=== PATIENT | male | born 1945 | race Caucasian/White ===

== ENCOUNTER → 2018-02-22 06:41 | Outpatient (CLI) | payer MEDICARE, OTHER, SELFPAY ==
--- NOTE | 2018-02-22 06:46 | CT_ITS ---
STUDY: CT BRAIN WITH AND WITHOUT CONTRAST REASON FOR EXAM: Male, 72 years old. Previous TIAs. Right leg pain. RADIATION DOSAGE (If Supplied By Facility): CTDIvol = ( 44.99 ) mGy, DLP = ( 1614.72 ) mGycm TECHNIQUE: Transaxial CT imaging of the brain was performed pre and post contrast administration. The examination was performed with intravenous administration of 50 ml of Isovue 370 contrast material. Individualized dose optimization techniques were used for this CT. COMPARISON: Comparison is made with prior study dated November 18, 2016. FINDINGS: Normal soft tissue structures. Normal calvarium. Normal size ventricles and extra-axial spaces for the patient's age. Normal white matter tracts of the cerebral hemispheres. Normal basal ganglia and thalami. Normal brainstem. Normal cerebellum. There is no intracranial hemorrhage. There are no findings of an acute ischemic infarction. Normal visualized paranasal sinuses. CT/Brain/Head W/WO Contrast IMPRESSION: Normal unenhanced and enhanced CT scan of the brain. Electronically Signed: Hasmukh Camarena MD at 10:56 EDT Tel [phone], Service support ,
== END ==
DX: Z86.73 Personal history of transient ischemic attack (TIA), and cerebral infarction without residual deficits (principal)
CPT/HCPCS: 70470; Q9967

== ENCOUNTER 2018-03-11 10:32 | Emergency (ER) | payer MEDICARE, OTHER, SELFPAY ==
[2018-03-11] VITALS (7 sets, daily range): BP systolic 151–177; BP diastolic 78–91; PULSE 56–65; RESP 16–35; TEMP 36.6; O2SAT 92–100; BMI 31.8
--- NOTE | 2018-03-11 10:45 | EKG12_ITS ---
Test Reason : FALL/CONFUSION Blood Pressure : / mmHG Vent. Rate : 065 BPM Atrial Rate : 065 BPM P-R Int : 238 ms QRS Dur : 094 ms QT Int : 440 ms P-R-T Axes : 026 -01 006 degrees QTc Int : 457 ms Suspect unspecified pacemaker failure Atrial-paced rhythm with prolonged AV conduction Left ventricular hypertrophy with repolarization abnormality Abnormal ECG Confirmed by JOCELYNN ANGULO ([id number]), digital editor HEVER RUBIO ([id number]) on 03/25/2018 5:23:17 PM Referred By: JARED Confirmed By:JOCELYNN ANGULO
--- NOTE | 2018-03-11 10:46 | CT_ITS ---
STUDY: CT BRAIN WITHOUT CONTRAST REASON FOR EXAM: Male, 72 years old. Trauma, bleeding from the left ear and nose RADIATION DOSAGE (If Supplied By Facility): CTDIvol = ( 44.99 ) mGy, DLP = ( 880.47 ) mGycm TECHNIQUE: Transaxial CT imaging of the brain was performed without administration of intravenous contrast material. Sagittal and coronal reconstructed images are provided and reviewed. Individualized dose optimization techniques were used for this CT. COMPARISON: 02/22/2018 FINDINGS: Normal soft tissue structures. Normal calvarium. There is intraparenchymal hemorrhage within the right temporal lobe. This measures approximately 1.8 x 1.2 cm. There is acute subdural hemorrhage on the right, measuring up to 1 cm in thickness. There is shift of the midline structures towards the left, by approximately 8 mm. There is mucoperiosteal inflammatory disease of the paranasal sinuses consistent with mild chronic sinusitis. CT/Brain/Head without Contrast IMPRESSION: Acute intraparenchymal and subdural hemorrhage on the right. There is approximately 8 mm of midline shift towards the left. N.B. : The above information has been verbally conveyed by Leonid Gee DO to Connected to Dr. Gee, Covering Physician, on 03/11/2018 12:05:56 (ET). Electronically Signed: Leonid Gee DO at 11:29 EDT Tel , Service support , N.B. : The above information has been verbally conveyed by Leonid Gee DO to Connected to Dr. Gee, Covering Physician, on 03/11/2018 12:05:56 (ET).
--- NOTE | 2018-03-11 10:46 | RAD_ITS ---
STUDY: X-RAY CHEST REASON FOR EXAM: Male, 72 years old. Trauma, status post fall TECHNIQUE: Single AP portable view of the chest. COMPARISON: None. FINDINGS: Cardiac monitoring leads overlie the chest. Cardiac pacemaker overlies the chest. There is patchy opacity in the left perihilar region and left lower lobe. There is an apical pleural cap on the left. There is mild cardiac enlargement. Normal mediastinum and carlos a. Normal visualized pulmonary arteries. There is atherosclerotic calcification of the aortic arch with tortuosity. There are diffuse degenerative changes of the visualized thoracic spine. Fractures are seen within multiple left-sided ribs, likely the fourth through the 10th. There is no demonstrated abnormality of the visualized soft tissue structures of the upper abdomen. RAD/Chest 1 View (Portable) IMPRESSION: Multiple left-sided rib fractures. Patchy left lung opacification may represent pulmonary contusion. A hemothorax cannot be excluded with soft tissue overlying the left lung apex. Electronically Signed: Leonid Gee DO at 11:41 EDT Tel , Service support ,
--- NOTE | 2018-03-11 10:46 | RAD_ITS ---
STUDY: X-RAY - PELVIS REASON FOR EXAM: Male, 72 years old. Trauma, status post fall TECHNIQUE: One view of the pelvis was obtained. COMPARISON: None. FINDINGS: There is a non-specific bowel gas pattern. Normal visualized soft tissue structures. Normal bilateral iliac wings, sacroiliac joints and visualized sacrum. Normal visualized bilateral superior and inferior pubic rami. Normal pubic symphysis. Normal ischial tuberosities. Normal visualized right femoral head. Normal right acetabulum. Normal right hip joint. Normal visualized left femoral head. Normal left acetabulum. Normal left hip joint. RAD/Pelvis 1 or 2 Views IMPRESSION: Normal x-ray examination of the pelvis. Electronically Signed: Leonid Gee DO at 11:35 EDT Tel , Service support ,
--- NOTE | 2018-03-11 10:46 | CT_ITS ---
STUDY: CT CERVICAL SPINE WITHOUT CONTRAST REASON FOR EXAM: Male, 72 years old. Trauma, status post fall in the shower RADIATION DOSAGE (If Supplied By Facility): CTDIvol = ( 28.73 ) mGy, DLP = ( 724 ) mGycm TECHNIQUE: High resolution transaxial imaging was performed without contrast material. Sagittal and coronal images were reconstructed. Individualized dose optimization techniques were used for this CT. COMPARISON: CT brain, same date FINDINGS: Normal craniovertebral junction. There are degenerative changes of the anterior atlantoaxial articulation. Normal odontoid process. Normal cervical lordosis. Normal vertebral bodies and posterior osseous elements. There are mild degenerative changes throughout the cervical spine, with disc space narrowing and an intradiscal calcification. There is some motion artifact present, slightly limiting evaluation. There is no fracture. Vascular calcifications are seen. CT/Spine Cervical without Contras IMPRESSION: Degenerative changes. No acute bony abnormality. Electronically Signed: Leonid Gee DO at 11:34 EDT Tel , Service support ,
[2018-03-11 10:53] LABS: Absolute Lymphocyte Count 1.94 X10^3/ul (0.83-4.51); Absolute Neutrophil Count 3.9 X10^3/uL (2.0-7.7); Basophil# 0.02 X10^3/uL; Basophil% 0.3 % (0-1); Eosinophil# 0.08 X10^3/uL; Eosinophils% 1.2 % (0-5); Hematocrit 40.9 % (40-54); Hemoglobin 13.6 g/dl (13.0-16.5); Lymphocyte # 1.94 X10^3/ul (4.0); Lymphocyte % 29.6 % (19-41); Mean Corp Hgb Conc 33.3 g/gl (32-36); Mean Corpuscular Hgb 30.7 pg (27.0-32.0); Mean Corpuscular Volume 92.3 fL (80-94); Monocyte% 9.2 % (0-10); Neutrophil # 3.89 X10^3/uL (2.7-7.7); Neutrophil % 59.4 % (47-70); Platelet Count 214 K/mm3 (150-450); RBC Distribution Width CV 13.3 % (11.6-14.6); RBC Distribution Width SD 44.9 fl (35.1-43.9); Red Blood Count 4.43 M/mm3 (4.6-6.2); White Blood Count 6.6 K/mm3 (4.4-11.0)
[2018-03-11 10:54] LABS: POSITIVE COUNT NO; POSITIVE DIFFERENTIAL NO; POSITIVE MORPHOLOGY NO
[2018-03-11 10:59] LABS: International Normalized Ratio 2.6; Prothrombin Time (Protime)PT. 28.2 SECONDS (11.7-14.9)
[2018-03-11 11:04] LABS: Partial Thromboplast Time 35.5 Seconds (24.1-36.2)
[2018-03-11 11:10] LABS: Alcohol, Blood (Medical)-Serum < 3.0 mg/dL
--- NOTE | 2018-03-11 11:10 | ED.RN ---
return from ct. breathing increased and heavy. dr mora at bedside
[2018-03-11 11:15] LABS: AST(SGOT) 39 U/L (15-37); Alanine Aminotransfer ALT/SGPT 33 U/L (16-61); Albumin, Serum 3.6 g/dL (3.2-5.0); Alkaline Phosphatase 57 U/L (45-117); Anion Gap 8 (5-15); BUN 17 mg/dL (7-18); BUN/Creat Ratio 19.5 RATIO (10-20); Bilirubin, Direct 0.19 mg/dL (0.00-0.30); Calcium,Total 8.9 mg/dL (8.5-10.1); Chloride 106 mmol/L (98-107); Creatinine, Serum 0.87 mg/dL (0.70-1.30); EST Glomerular Filtration Rate 92 mL/min (>60); Est Glom Filt Rate - Afr Amer 111 mL/min (>60); Estimated Creatinine Clearance 91.86 ml/min; Globulin 3.7 g/dL (2.2-4.2); Glucose 142 mg/dL (74-106); Potassium 3.6 mmol/L (3.5-5.1); Protein, Total 7.3 g/dL (6.4-8.2); Sodium Level 139 mmol/L (136-145)
--- NOTE | 2018-03-11 11:15 | ED.RN ---
decision to intubate. process for transfer. cps called and prep for intubation.
--- NOTE | 2018-03-11 11:23 | NURSING ---
CALLED [facility] FOR TRANSFER. ER DOC TO ER DOC
--- NOTE | 2018-03-11 11:26 | NURSING ---
ER DOC DR FULLER
[2018-03-11] MEDS: Succinylcholine Chloride 200 MG/10 ML Vial 100 MG IV (11:29)
--- NOTE | 2018-03-11 11:42 | RAD_ITS ---
STUDY: X-RAY CHEST REASON FOR EXAM: Male, 72 years old. Line placement TECHNIQUE: Single AP portable view of the chest. COMPARISON: 03/11/2018 FINDINGS: An endotracheal tube is seen with the tip approximately 3.7 cm above the sofiya. An enteric tube is within the stomach. Cardiac pacemaker is unchanged. There is patchy left-sided airspace disease. Left apical pleural cap is seen. The right lung apex is excluded from the image. Normal size heart. Normal mediastinum and carlos a. Normal visualized pulmonary arteries. There is atherosclerotic calcification of the aortic arch with tortuosity. Normal visualized thoracic spine. Multiple left-sided rib fractures are seen. There is no demonstrated abnormality of the visualized soft tissue structures of the upper abdomen. RAD/Chest 1 View (Portable) IMPRESSION: Life support tubes and catheters, as detailed above. Continued left-sided airspace disease likely representing pulmonary contusion. Multiple left-sided rib fractures. Electronically Signed: Leonid Gee DO at 12:49 EDT Tel , Service support ,
--- NOTE | 2018-03-11 11:46 | NURSING ---
[facility] ETA IS 8 MIN
--- NOTE | 2018-03-11 11:49 | ED.VISSUMM ---
- ER Visit Summary Date of Service: 03/11/18 Chief Complaint: Fall History of Present Illness: The patient is a 72 M on Coumadin who presents for injuries after a fall. Per the patient fell in the shower. It was unwitnessed. EMS was called, and noted the patient to be confused and asking repetitive questions. states the floor in the bathroom is concrete and the patient had fallen out of the shower and hit his head on the floor. He has a pacemaker. End of history limited secondary to patient mental status. Physical Examination: Patient is in spinal immobilization, moaning and not answering questions. Airway is patent. Lungs are clear and symmetric. Pulses 2+ and symmetrical distal extremities. Pupils are constricted, equal. GCS = 8. No obvious scalp trauma. Blood from the left ear, negative halo sign. Dried blood in bilateral nares, no septal hematoma noted. No malocclusion or oropharyngeal trauma noted. Mucous membranes are dry. Trachea is midline. Patient in a c-collar. Heart regular rate and rhythm, clicking noted over the left sternal border, systolic murmur noted. Abdomen is soft, nontender, nondistended. Pelvis is stable. No deformities noted to the extremities. Bruising in various stages of healing noted on the extremities. Test Results: Abnormal Lab Results 03/11/18 03/11/18 03/11/18 10:35 10:35 10:35 WBC 6.6 RBC 4.43 L Hgb 13.6 Hct 40.9 MCV 92.3 MCH 30.7 MCHC 33.3 RDW 13.3 RDW Differential 44.9 H Plt Count 214 MPV 9.0 Immature Gran % (Auto) 0.300 Neut % (Auto) 59.4 Lymph % (Auto) 29.6 Shoshone % (Auto) 9.2 Eos % (Auto) 1.2 Baso % (Auto) 0.3 Absolute Neuts (auto) 3.9 Absolute Lymphs (auto) 1.94 Total Counted Not Reportable PT 28.2 H INR 2.6 APTT 35.5 Sodium 139 Potassium 3.6 Chloride 106 Carbon Dioxide 25.0 Anion Gap 8 BUN 17 Creatinine 0.87 Estim Creat Clear Calc 91.86 Est GFR (MDRD) Af Amer 111 Est GFR (MDRD) Non-Af 92 BUN/Creatinine Ratio 19.5 Glucose 142 H Calcium 8.9 Total Bilirubin 0.70 Direct Bilirubin 0.19 AST 39 H ALT 33 Alkaline Phosphatase 57 Total Protein 7.3 Albumin 3.6 Globulin 3.7 Ethyl Alcohol 03/11/18 10:35 WBC RBC Hgb Hct MCV MCH MCHC RDW RDW Differential Plt Count MPV Immature Gran % (Auto) Neut % (Auto) Lymph % (Auto) Shoshone % (Auto) Eos % (Auto) Baso % (Auto) Absolute Neuts (auto) Absolute Lymphs (auto) Total Counted PT INR APTT Sodium Potassium Chloride Carbon Dioxide Anion Gap BUN Creatinine Estim Creat Clear Calc Est GFR (MDRD) Af Amer Est GFR (MDRD) Non-Af BUN/Creatinine Ratio Glucose Calcium Total Bilirubin Direct Bilirubin AST ALT Alkaline Phosphatase Total Protein Albumin Globulin Ethyl Alcohol < 3.0 Clinical Impression(s) from Imaging Studies Cervical Spine CT 03/11/18 10:46 IMPRESSION: Degenerative changes. No acute bony abnormality. Electronically Signed: Leonid Gee DO at 11:34 EDT Tel , Service support , Chest X-Ray 03/11/18 10:46 IMPRESSION: Multiple left-sided rib fractures. Patchy left lung opacification may represent pulmonary contusion. A hemothorax cannot be excluded with soft tissue overlying the left lung apex. Electronically Signed: Leonid Gee DO at 11:41 EDT Tel , Service support , Pelvis X-Ray 03/11/18 10:46 IMPRESSION: Normal x-ray examination of the pelvis. Electronically Signed: Leonid Gee DO at 11:35 EDT Tel , Service support , Emergency Department Course and Treatment: Patient presents with decreasing mental status after a fall with obvious head trauma. CT of the head showed a right-sided subdural hemorrhage with midline shift. Patient had further decline in his mental status, with beginning of flexor posturing on the right. Patient was intubated for airway protection after induction with etomidate and succinylcholine. Placement confirmed with capnography, equal chest rise and symmetric breath sounds, CXR. Vitamin K and K Centra were given for reversal of an INR of 2.6. Chest x-ray shows multiple left-sided rib fractures with no obvious hemo/pneumothorax. Maintain symmetric breath sounds bilaterally. No spinal fractures noted on CT the spine. Patient was discussed with Dr. Yuan at [facility] for trauma eval and neurosurgical intervention. No seizure prophylaxis given after discussion with the receiving facility. Patient remained sedated on propofol drip with close monitoring of hemodynamics. Transferred emergently via [facility]. Family kept updated. CODE STATUS confirmed as full code with . Critical care time: 45 minutes independent of separately billable procedures. Treatment Plan: [] Disposition: Transfer to [facility] ED for trauma and neurosurgical services Impression: Traumatic subdural hematoma, altered mental status, left rib fractures, pulmonary contusion, respiratory failure. intubated patient. This note was generated with [employer] dictation software. It may contain incorrect words, spelling, and punctuation that were not noted in review of the chart prior to signing ED Disposition - Plan for ED Patient: Disposition: [facility] Chief Complaint: Fall [facility] [Primary Care Provider] -
[2018-03-11] MEDS: Propofol 10MG/Ml 1,000 MG/100 ML Bottle 3.375 MG CONT INF (11:50)
--- NOTE | 2018-03-11 11:57 | ED.DCSUM_ITS ---
- ER Visit Summary Date of Service: 03/11/18 Chief Complaint: Fall History of Present Illness: The patient is a 72 M on Coumadin who presents for injuries after a fall. Per the patient fell in the shower. It was unwitnessed. EMS was called, and noted the patient to be confused and asking repetitive questions. states the floor in the bathroom is concrete and the patient had fallen out of the shower and hit his head on the floor. He has a pacemaker. End of history limited secondary to patient mental status. Physical Examination: Patient is in spinal immobilization, moaning and not answering questions. Airway is patent. Lungs are clear and symmetric. Pulses 2+ and symmetrical distal extremities. Pupils are constricted, equal. GCS = 8. No obvious scalp trauma. Blood from the left ear, negative halo sign. Dried blood in bilateral nares, no septal hematoma noted. No malocclusion or oropharyngeal trauma noted. Mucous membranes are dry. Trachea is midline. Patient in a c-collar. Heart regular rate and rhythm, clicking noted over the left sternal border, systolic murmur noted. Abdomen is soft, nontender, nondistended. Pelvis is stable. No deformities noted to the extremities. Bruising in various stages of healing noted on the extremities. Test Results: Abnormal Lab Results 03/11/18 03/11/18 03/11/18 10:35 10:35 10:35 WBC 6.6 RBC 4.43 L Hgb 13.6 Hct 40.9 MCV 92.3 MCH 30.7 MCHC 33.3 RDW 13.3 RDW Differential 44.9 H Plt Count 214 MPV 9.0 Immature Gran % (Auto) 0.300 Neut % (Auto) 59.4 Lymph % (Auto) 29.6 Clinch % (Auto) 9.2 Eos % (Auto) 1.2 Baso % (Auto) 0.3 Absolute Neuts (auto) 3.9 Absolute Lymphs (auto) 1.94 Total Counted Not Reportable PT 28.2 H INR 2.6 APTT 35.5 Sodium 139 Potassium 3.6 Chloride 106 Carbon Dioxide 25.0 Anion Gap 8 BUN 17 Creatinine 0.87 Estim Creat Clear Calc 91.86 Est GFR (MDRD) Af Amer 111 Est GFR (MDRD) Non-Af 92 BUN/Creatinine Ratio 19.5 Glucose 142 H Calcium 8.9 Total Bilirubin 0.70 Direct Bilirubin 0.19 AST 39 H ALT 33 Alkaline Phosphatase 57 Total Protein 7.3 Albumin 3.6 Globulin 3.7 Ethyl Alcohol 03/11/18 10:35 WBC RBC Hgb Hct MCV MCH MCHC RDW RDW Differential Plt Count MPV Immature Gran % (Auto) Neut % (Auto) Lymph % (Auto) Clinch % (Auto) Eos % (Auto) Baso % (Auto) Absolute Neuts (auto) Absolute Lymphs (auto) Total Counted PT INR APTT Sodium Potassium Chloride Carbon Dioxide Anion Gap BUN Creatinine Estim Creat Clear Calc Est GFR (MDRD) Af Amer Est GFR (MDRD) Non-Af BUN/Creatinine Ratio Glucose Calcium Total Bilirubin Direct Bilirubin AST ALT Alkaline Phosphatase Total Protein Albumin Globulin Ethyl Alcohol < 3.0 Clinical Impression(s) from Imaging Studies Cervical Spine CT 03/11/18 10:46 IMPRESSION: Degenerative changes. No acute bony abnormality. Electronically Signed: Leonid Gee DO at 11:34 EDT Tel , Service support , Chest X-Ray 03/11/18 10:46 IMPRESSION: Multiple left-sided rib fractures. Patchy left lung opacification may represent pulmonary contusion. A hemothorax cannot be excluded with soft tissue overlying the left lung apex. Electronically Signed: Leonid Gee DO at 11:41 EDT Tel , Service support , Pelvis X-Ray 03/11/18 10:46 IMPRESSION: Normal x-ray examination of the pelvis. Electronically Signed: Leonid Gee DO at 11:35 EDT Tel , Service support , Emergency Department Course and Treatment: Patient presents with decreasing mental status after a fall with obvious head trauma. CT of the head showed a right-sided subdural hemorrhage with midline shift. Patient had further decline in his mental status, with beginning of flexor posturing on the right. Patient was intubated for airway protection after induction with etomidate and succinylcholine. Placement confirmed with capnography, equal chest rise and symmetric breath sounds, CXR. Vitamin K and K Centra were given for reversal of an INR of 2.6. Chest x-ray shows multiple left-sided rib fractures with no obvious hemo/pneumothorax. Maintain symmetric breath sounds bilaterally. No spinal fractures noted on CT the spine. Patient was discussed with Dr. Yuan at [facility] for trauma eval and neurosurgical intervention. No seizure prophylaxis given after discussion with the receiving facility. Patient remained sedated on propofol drip with close monitoring of hemodynamics. Transferred emergently via [facility]. Family kept updated. CODE STATUS confirmed as full code with . Critical care time: 45 minutes independent of separately billable procedures. Treatment Plan: [] Disposition: Transfer to [facility] ED for trauma and neurosurgical services Impression: Traumatic subdural hematoma, altered mental status, left rib fractures, pulmonary contusion, respiratory failure. intubated patient. This note was generated with [employer] dictation software. It may contain incorrect words, spelling, and punctuation that were not noted in review of the chart prior to signing ED Disposition - Plan for ED Patient: Disposition: [facility] Chief Complaint: Fall [facility] [facility] [Primary Care Provider] -
[2018-03-11 12:05] LABS: Bacteria 0 SEEN /hpf (None Seen); Mucous, Urine 0 SEEN /hpf (<or=2+); Squamous Epithelial Cells - UA 0 SEEN /hpf (0-5); White Blood Cells 0 SEEN /hpf (0-5)
--- NOTE | 2018-03-11 12:11 | NURSING ---
CALLED CHARLES SANDOVAL ABOUT PATIENT BEING TRANSFERRED A TRAUMA TO [facility]
[2018-03-11 12:53] LABS: Color, Urine Yellow (Yellow); Glucose, Dipstick Normal (Normal); Ketone-Dipstick 15 mg/dl (Negative); Leukocyte Esterase-Dipstick Negative /ul (Negative); Nitrite-Dipstick Negative (Negative); Occult Blood-Urine 50 /ul (Negative); Protein-Dipstick 100 mg/dl (Negative); Specific Gravity, Urine 1.015 (1.002-1.030); Urine Bilirubin Dipstick Negative (Negative); Urine Clarity Clear (Clear); Urine Urobilinogen Normal (Normal); Urine pH 6.5 (5.0 - 8.0)
[2018-03-11 12:59] LABS: Red Blood Cells-Urine 0-5 SEEN /hpf (0-5)
[2018-03-11 13:02] LABS: Amphetamine Urine VISTA NEGATIVE (<1000 ng/mL); Barbiturate Urine VISTA NEGATIVE (< 200 ng/mL); Benzodiazepine Urine VISTA NEGATIVE (< 200 ng/mL); Cocaine Urine VISTA NEGATIVE (< 300 ng/mL); Ecstacy Urine VISTA NEGATIVE (< 500 ng/mL); Methadone Urine VISTA NEGATIVE (< 300 ng/mL); PCP Urine VISTA NEGATIVE (< 25 ng/mL); THC Urine VISTA NEGATIVE (< 50 ng/mL); Vista UDS pH Range 6
== END 2018-03-11 12:10 | disposition short-term general hospital (02) ==
LOC: ED 11:08
PROVIDERS: Emergency Provider Emergency Medicine
DX: S06.5X9A Traumatic subdural hemorrhage with loss of consciousness of unspecified duration, initial encounter (principal); R41.82 Altered mental status, unspecified; J96.90 Respiratory failure, unspecified, unspecified whether with hypoxia or hypercapnia; S22.42XA Multiple fractures of ribs, left side, initial encounter for closed fracture; S27.329A Contusion of lung, unspecified, initial encounter; Z95.0 Presence of cardiac pacemaker; Z79.82 Long term (current) use of aspirin; Z79.899 Other long term (current) drug therapy; W18.30XA Fall on same level, unspecified, initial encounter; Y93.E1 Activity, personal bathing and showering; Y92.002 Bathroom of unspecified non-institutional (private) residence as the place of occurrence of the external cause; Y99.8 Other external cause status
CPT/HCPCS: 31500; 51702; 70450; 71045; 72125; 72170; 80048; 80076; 80307; 80320; 81001; 85025; 85610; 85730; 93005; 94002; 94770; 96365; 96367; 96375; 99251; 99285; C9132; J7050; A4216; G0463; G0480; J3490